=== PATIENT | female | born 1995 | race African-American/Black ===

== ENCOUNTER 2025-05-07 08:17 | Emergency (ER) | payer SELFPAY ==
[2025-05-07] MEDS ORDERED: Ketorolac Tromethamine 30 MG (1 mL) VIAL ONE (09:09)
== END 2025-05-07 09:12 | disposition home or self-care (01) ==
LOC: CSHERS 08:17
DX: K08.89 Other specified disorders of teeth and supporting structures (principal); M26.69 Other specified disorders of temporomandibular joint; H61.21 Impacted cerumen, right ear
CPT/HCPCS: J1885